=== PATIENT | female | born 1960 | race Caucasian/White ===

== ENCOUNTER → 2016-09-20 | Outpatient (CLI) | payer BC ==
[2016-09-20 08:23] LABS: Basophils % (A) 1 %; CH 29.1; CHCM 32.5; Eosinophils # (A) 0.2 k/uL (0-0.7); Eosinophils % (A) 4 %; HCT 44.4 % (34.0-46.0); HGB 14.5 gm/dL (11.4-16.0); Luc # (Auto) 0.11; Luc % (Auto) 3; Lymphocytes # (A) 1.6 k/uL (1.0-4.8); Lymphocytes % (A) 37 %; MCH 29.3 pg (25.0-35.0); MCHC 32.6 g/dL (31.0-37.0); MCV 89.8 fL (80.0-100.0); Mean Platelet Volume 7.8; Monocytes # (A) 0.3 k/uL (0-1.0); Monocytes % (A) 6 %; Neutrophils # (A) 2.1 k/uL (1.3-7.7); Neutrophils % (A) 49 %; RBC 4.95 m/uL (3.80-5.40); RDW 13.3 % (11.5-15.5); WBC 4.2 k/uL (3.8-10.6); WBC (Perox) 4.37
[2016-09-20 08:40] LABS: ALT 28 U/L (9-52); AST 21 U/L (14-36); Alkaline Phosphatase 57 U/L (38-126); Anion Gap 10 mmol/L; Blood Urea Nitrogen 19 mg/dL (7-17); Calcium 9.5 mg/dL (8.4-10.2); Carbon Dioxide 27 mmol/L (22-30); Chloride 108 mmol/L (98-107); Cholesterol 187 mg/dL (<200); Glucose 99 mg/dL (74-99); HDL Cholesterol 52 mg/dL (40-60); Non-African American GFR(MDRD) >60 (>60 ml/min/1.73 sqM); Potassium 4.6 mmol/L (3.5-5.1); Sodium 145 mmol/L (137-145); Total Bilirubin 0.6 mg/dL (0.2-1.3); Total Protein 7.7 g/dL (6.3-8.2); Triglycerides 110 mg/dL (<150)
== END | disposition home or self-care (01) ==
LOC: LABWHC1 08:05
PROVIDERS: ATTEND Family Medicine
DX: Z00.00 Encounter for general adult medical examination without abnormal findings (principal); Z13.220 Encounter for screening for lipoid disorders; Z13.1 Encounter for screening for diabetes mellitus
CPT/HCPCS: 36415; 80053; 80061; 85025

== ENCOUNTER → 2016-09-25 | Outpatient (CLI) | payer BC ==
--- NOTE | 2016-09-29 09:36 | MM ---
Reason for exam: screening (asymptomatic). Last mammogram was performed 1 year and 1 month ago. History: Patient is postmenopausal, has history of other cancer at age 43, and is nulliparous. Family history of breast cancer in paternal grandmother at age 60. Benign excisional biopsy of the right breast, February 08, 2001. Benign ultrasound-guided core biopsy of the right breast, January 23, 1999. Benign core biopsy of the right breast. Physical Findings: A clinical breast exam by your physician is recommended on an annual basis and results should be correlated with mammographic findings. MG Screening Mammo w CAD Bilateral CC and MLO view(s) were taken. Prior study comparison: September 05, 2015, bilateral MG 3d diag mammo w/cad ТАТЬЯНА. July 21, 2014, bilateral MG diagnostic mammo w CAD ТАТЬНЯА. There are scattered fibroglandular densities. Asymmetric breast tissue. Right stable since 2012. Ultrasound 2016 negative. No significant changes when compared with prior studies. ASSESSMENT: Benign, BI-RAD 2 RECOMMENDATION: Routine screening mammogram of both breasts in 1 year.
== END | disposition home or self-care (01) ==
LOC: RADMAMWWP 16:12
PROVIDERS: ATTEND Obstetrics & Gynecology
DX: Z12.31 Encounter for screening mammogram for malignant neoplasm of breast (principal)

== ENCOUNTER 2016-10-16 18:55 | Emergency (ER) | payer BC ==
[2016-10-16 19:01] VITALS: BP 129/76; PULSE 78; RESP 18; TEMP 98.4
[2016-10-16] MEDS ORDERED: DIPH,PERTUS(ACELL)TETVAC-LF 0.5 ML VIAL IM ONE (19:14)
--- NOTE | 2016-10-16 19:22 | ED ---
Wound/Laceration HPI - General Chief Complaint: Wound/Laceration Stated Complaint: Lac/Hand Time Seen by Provider: 10/16/16 19:03 Source: patient, RN notes reviewed Mode of arrival: ambulatory Limitations: no limitations - History of Present Illness Initial Comments: Patient is a 55-year-old female presents to the emergency room for evaluation of right hand laceration. Patient states she was cleaning dishes and a piece of glass cut her hand. Patient states she's having minimal pain. Patient states she's having minimal bleeding. Patient states she is not sure when her last tetanus vaccine was. Patient states she still has full range of motion of her fingers. Patient denies any numbness or tingling in her fingers. Patient denies any other injuries during incident. Patient denies taking blood thinners. - Related Data Allergies Allergy/AdvReac Type Severity Reaction Status Date / Time sulfamethoxazole Allergy Unknown Verified 10/16/16 19:01 [From ] Childhood trimethoprim [From ] Allergy Unknown Verified 10/16/16 19:01 Childhood Review of Systems ROS Statement: Those systems with pertinent positive or pertinent negative responses have been documented in the HPI. ROS Other: All systems not noted in ROS Statement are negative. Past Medical History Past Medical History: Atrial Fibrillation Additional Past Medical History / Comment(s): skull fracture History of Any Multi-Drug Resistant Organisms: None Reported Past Surgical History: Appendectomy, Heart Catheterization, Hysterectomy Additional Past Surgical History / Comment(s): skull fracture, cardiac ablation Past Psychological History: No Psychological Hx Reported Smoking Status: Never smoker Past Alcohol Use History: Occasional Past Drug Use History: None Reported General Exam - General Exam Comments Initial Comments: Sitting in exam room, no acute distress. Limitations: no limitations General appearance: alert, in no apparent distress Head exam: Present: atraumatic, normocephalic, normal inspection Eye exam: Present: normal appearance ENT exam: Present: normal exam Neck exam: Present: normal inspection Respiratory exam: Absent: respiratory distress Right Hand Wrist exam: Present: full ROM, laceration (1cm laceration over 5th dorsal MCP joint ). Absent: tenderness Neurosensory exam: Present: 2-point discrimination Vascular: Present: normal capillary refill (Capillary refill less than 2 seconds ), radial pulse (2+), ulnar pulse (2+) Back exam: Present: normal inspection Neurological exam: Present: alert, oriented X3, CN II-XII intact, normal gait Psychiatric exam: Present: normal affect, normal mood Skin exam: Present: warm, dry. Absent: rash Course Vital Signs 10/16/16 18:56 Temperature 98.4 F Pulse Rate 78 Respiratory 18 Rate Blood Pressure 129/76 O2 Sat by Pulse 97 Oximetry Procedures - Laceration Laceration #1 Consent Obtained: verbal consent Indication: laceration Site: hand (right) Size (cm): 1 Description: linear Depth: simple, single layer Anesthetic Used: lidocaine 1% Anesthesia Technique: local infiltration Amount (mls): 1 Pre-repair: wound explored Type of Sutures: nylon Size of Sutures: 6-0 Number of Sutures: 3 Technique: simple, interrupted Patient Tolerated Procedure: well, no complications Medical Decision Making - Medical Decision Making Patient is a 55-year-old female presents to the emergency room for evaluation of right hand laceration. Laceration repair with sutures. Patient updated on her tetanus vaccine. Advised patient to return in 10 days for suture removal. Patient states she understands everything that was discussed with her. Return parameters discussed. Case discussed Dr. Fontanez. Disposition Clinical Impression: Hand laceration Disposition: HOME SELF-CARE Condition: Good Instructions: Laceration (ED), Care For Your Stitches (ED) Additional Instructions: Do not submerge suture area in water. Clean suture area with a damp cloth. Take Tylenol or Motrin as needed for discomfort. Please return in 10 days for suture removal. If any new symptom arises or symptoms worsen, return to ER as soon as possible. Referrals: Roel Aguilar MD [Primary Care Provider] - 1-2 days Time of Disposition: 19:44
== END 2016-10-16 20:07 | disposition home or self-care (01) ==
LOC: EC 18:55
DX: S61.411A Laceration without foreign body of right hand, initial encounter (principal); Z88.1 Allergy status to other antibiotic agents; Z23 Encounter for immunization; W25.XXXA Contact with sharp glass, initial encounter; Y93.G1 Activity, food preparation and clean up
CPT/HCPCS: 12001; 90471; 90715; 99282

== ENCOUNTER → 2016-12-18 | Outpatient (CLI) | payer BC ==
[2016-12-18 14:42] LABS: Calcium 9.2 mg/dL (8.4-10.2)
== END | disposition home or self-care (01) ==
LOC: LABWHC1 14:07
PROVIDERS: ATTEND Internal Medicine Endocrinology, Diabetes & Metabolism
DX: E04.1 Nontoxic single thyroid nodule (principal); E21.0 Primary hyperparathyroidism; E55.9 Vitamin D deficiency, unspecified
CPT/HCPCS: 36415; 82306; 82310; 83970; 84439; 84443

== ENCOUNTER → 2016-12-30 | Outpatient (CLI) | payer BC ==
--- NOTE | 2016-12-30 17:36 | US ---
EXAMINATION TYPE: US thyroid st tissue head/neck DATE OF EXAM: 12/30/2016 COMPARISON: 01/10/2015 CLINICAL HISTORY: E04.1 Nontoxic single tyroid nodule. Had right parathyroid nodule removed GLAND SIZE: Right Lobe: 4.8 x 1.6 x 1.8 cm Overall Parenchyma: homogenous Left Lobe: 4.2 x 1.2 x 1.2 cm Overall Parenchyma: homogeneous Isthmus Thickness: 0.3 cm NODULES RIGHT: # of nodules measured on right: 2 1. 0.6 X 0.5 x 0.5 cm hypoechoic mixed nodule at the mid medial pole with well-defined margins. Th is nodule is wide as is tall and shows no intranodular vascularity. Prior size: 0.7 x 0.6 x 0.6 cm 2. 0.3 X 0.4 x 0.3 cm hypoechoic cystic nodule at the mid lateral pole with well-defined margins. T his nodule is wider than tall and shows no intranodular vascularity. Prior size: 0.4 x 0.2 x 0.4 cm LEFT: # of nodules measured on left: 1 1. 0.3 X 0.2 x 0.2 cm hypoechoic cystic nodule at the mid pole with well-defined margins; interrupt ed peripheral calcification. This nodule is wide as is tall and shows no intranodular vascularity. Prior size: 0.3 x 0.2 x 0.3 cm ISTHMUS: # of nodules measured in the isthmus: 0 Bilateral neck scanned, no evidence of lymphadenopathy. IMPRESSION: Bilateral small findings. No dominant thyroid mass. No adverse change compared to old exam. I have a very low suspicion of malignancy.
== END | disposition home or self-care (01) ==
LOC: RADUSWWP 16:48
PROVIDERS: ATTEND Internal Medicine Endocrinology, Diabetes & Metabolism
DX: E04.2 Nontoxic multinodular goiter (principal)
CPT/HCPCS: 76536

== ENCOUNTER → 2017-09-11 | Outpatient (CLI) | payer BC ==
[2017-09-11 08:35] LABS: Basophils % (A) 1 %; Eosinophils # (A) 0.3 k/uL (0-0.7); Eosinophils % (A) 5 %; HCT 45.7 % (34.0-46.0); HGB 15.5 gm/dL (11.4-16.0); Lymphocytes # (A) 1.8 k/uL (1.0-4.8); Lymphocytes % (A) 35 %; MCH 29.6 pg (25.0-35.0); MCHC 33.9 g/dL (31.0-37.0); MCV 87.3 fL (80.0-100.0); Mean Platelet Volume 7.8; Monocytes # (A) 0.4 k/uL (0-1.0); Monocytes % (A) 7 %; Neutrophils # (A) 2.6 k/uL (1.3-7.7); Neutrophils % (A) 50 %; Platelet Count 251 k/uL (150-450); RBC 5.23 m/uL (3.80-5.40); RDW 12.4 % (11.5-15.5); WBC 5.2 k/uL (3.8-10.6)
[2017-09-11 08:54] LABS: ALT 26 U/L (9-52); AST 21 U/L (14-36); Albumin 4.1 g/dL (3.5-5.0); Alkaline Phosphatase 49 U/L (38-126); Anion Gap 10 mmol/L; Blood Urea Nitrogen 14 mg/dL (7-17); Carbon Dioxide 28 mmol/L (22-30); Chloride 103 mmol/L (98-107); Cholesterol 174 mg/dL (<200); Glucose 93 mg/dL (74-99); HDL Cholesterol 36 mg/dL (40-60); LDL Cholesterol,Calculated 106 mg/dL (0-99); Potassium 4.7 mmol/L (3.5-5.1); Sodium 141 mmol/L (137-145); Total Bilirubin 0.5 mg/dL (0.2-1.3); Total Protein 6.9 g/dL (6.3-8.2); Triglycerides 162 mg/dL (<150)
== END | disposition home or self-care (01) ==
LOC: LABWHC1 08:08
PROVIDERS: ATTEND Family Medicine
DX: Z00.00 Encounter for general adult medical examination without abnormal findings (principal); Z13.1 Encounter for screening for diabetes mellitus; Z13.220 Encounter for screening for lipoid disorders; Z79.899 Other long term (current) drug therapy
CPT/HCPCS: 36415; 80053; 80061; 85025

== ENCOUNTER → 2017-10-13 | Outpatient (CLI) | payer BC ==
--- NOTE | 2017-10-14 10:24 | MM ---
Reason for exam: screening (asymptomatic). Last mammogram was performed 1 year and 1 month ago. History: Patient is postmenopausal, has history of other cancer at age 43, and is nulliparous. Family history of breast cancer in paternal grandmother at age 60. Benign excisional biopsy of the right breast, February 08, 2001. Benign ultrasound-guided core biopsy of the right breast, January 23, 1999. Benign core biopsy of the right breast. Physical Findings: A clinical breast exam by your physician is recommended on an annual basis and results should be correlated with mammographic findings. MG Screening Mammo w CAD Bilateral CC and MLO view(s) were taken. Prior study comparison: September 25, 2016, bilateral MG screening mammo w CAD. September 05, 2015, bilateral MG 3d diag mammo w/cad ТАТЬЯНА. The breast tissue is heterogeneously dense. This may lower the sensitivity of mammography. There is chronic nodularity in the right breast. No significant changes when compared with prior studies. ASSESSMENT: Benign, BI-RAD 2 RECOMMENDATION: Routine screening mammogram of both breasts in 1 year.
== END | disposition home or self-care (01) ==
LOC: RADMAMWWP 16:38
PROVIDERS: ATTEND Obstetrics & Gynecology
DX: Z12.31 Encounter for screening mammogram for malignant neoplasm of breast (principal); Z80.3 Family history of malignant neoplasm of breast
CPT/HCPCS: 77067

== ENCOUNTER → 2017-12-22 | Outpatient (CLI) | payer BC ==
--- NOTE | 2017-12-22 11:19 | US ---
EXAMINATION TYPE: US thyroid st tissue head/neck DATE OF EXAM: 12/22/2017 COMPARISON: Thyroid ultrasound May 02, 2017 CLINICAL HISTORY: E04.1 Thyroid Nodule. GLAND SIZE: Right Lobe: 4.7 x 1.6 x 1.5 cm Overall Parenchyma: homogenous Left Lobe: 4.6 x 1.2 x 1.3 cm Overall Parenchyma: homogeneous Isthmus Thickness: 0.2 cm NODULES RIGHT: # of nodules measured on right: 1. 0.6 X 0.5 x 0.6 cm hypoechoic solid nodule at the mid pole with well-defined margins . This nod ule is wider than tall and shows intranodular vascularity. Prior size: 0.7 x 0.6 x 0.6 cm 2. 0.2 X 0.2 x 0.2 cm anechoic cystic nodule at the mid lateral pole with well-defined margins . Th is nodule is wider than tall and shows no intranodular vascularity. Prior size: 0.3 x 0.4 x 0.3 cm LEFT: # of nodules measured on left: 1 1. 0.4 X 0.2 x 0.2 cm anechoic cystic nodule at the mid pole with well-defined margins. This nodul e is wider than tall and shows no intranodular vascularity. Prior size: 0.3 x 0.2 x 0.3 cm ISTHMUS: # of nodules measured in the isthmus: 0 Bilateral neck scanned, no evidence of lymphadenopathy. Redemonstration of heterogeneous normal-sized thyroid with scattered small nodules that shows no sign ificant interval change. IMPRESSION: As above, no worrisome new greater than 1 cm solid or cystic nodules are seen.
[2017-12-22 11:36] LABS: Albumin 4.3 g/dL (3.5-5.0); Calcium 9.4 mg/dL (8.4-10.2)
[2017-12-22 11:55] LABS: T4, Free (Free Thyroxine) 0.81 ng/dL (0.78-2.19)
== END | disposition home or self-care (01) ==
LOC: RADUSWWP 10:30
PROVIDERS: ATTEND Internal Medicine Endocrinology, Diabetes & Metabolism
DX: E04.2 Nontoxic multinodular goiter (principal); E04.1 Nontoxic single thyroid nodule; E21.0 Primary hyperparathyroidism; E55.9 Vitamin D deficiency, unspecified
CPT/HCPCS: 36415; 76536; 82040; 82306; 82310; 84439; 84443

== ENCOUNTER → 2018-09-30 | Outpatient (CLI) | payer BC ==
--- NOTE | 2018-09-30 14:58 | MM ---
Reason for exam: clinical finding. Last mammogram was performed 1 year ago. History: Patient is postmenopausal, has history of other cancer at age 43, and is nulliparous. Family history of breast cancer in paternal grandmother at age 60. Benign excisional biopsy of the right breast, February 08, 2001. Benign ultrasound-guided core biopsy of the right breast, January 23, 1999. Benign core biopsy of the right breast. Indicated problem(s): lump or thickening in the left breast. Physical Findings: Nurse Summary: 1cm nodule in the left breast at 2 o'clock (nurse mj). MG Diagnostic Mammo w CAD ТАТЬЯНА Bilateral CC and MLO view(s) were taken. Prior study comparison: October 13, 2017, bilateral MG screening mammo w CAD. September 25, 2016, bilateral MG screening mammo w CAD. The breast tissue is heterogeneously dense. This may lower the sensitivity of mammography. Finding: There are typically benign round, regional calcifications in the upper outer quadrant of the left breast. These results were verbally communicated with the patient and result sheet given to the patient on 09/30/18. ASSESSMENT: Incomplete: need additional imaging evaluation, BI-RAD 0 RECOMMENDATION: Ultrasound of the left breast. (palpable by patient/doctor)
--- NOTE | 2018-09-30 14:59 | USB ---
Reason for exam: additional evaluation requested from abnormal screening. History: Patient is postmenopausal, has history of other cancer at age 43, and is nulliparous. Family history of breast cancer in paternal grandmother at age 60. Benign excisional biopsy of the right breast, February 08, 2001. Benign ultrasound-guided core biopsy of the right breast, January 23, 1999. Benign core biopsy of the right breast. US Breast Limited LT Left limited breast ultrasound including focal area of concern, retroareolar and axilla demonstrates a 0.4 x 0.2 x 0.4cm lesion too small to characterize at 6 o'clock and a 0.4 x 0.4 x 0.7cm round questionable lipoma at 2 o'clock. These results were verbally communicated with the patient and result sheet given to the patient on 09/30/18. ASSESSMENT: Probably benign, BI-RAD 3 RECOMMENDATION: Ultrasound of the left breast in 6 months.
== END | disposition home or self-care (01) ==
LOC: RADMAMWWP 13:35
PROVIDERS: ATTEND Obstetrics & Gynecology
DX: N63.20 Unspecified lump in the left breast, unspecified quadrant (principal)
CPT/HCPCS: 77066

== ENCOUNTER → 2018-10-01 | Outpatient (CLI) | payer BC ==
[2018-10-01 10:23] LABS: Basophils % (A) 1 %; Eosinophils # (A) 0.2 k/uL (0-0.7); Eosinophils % (A) 4 %; HCT 47.8 % (34.0-46.0); HGB 15.5 gm/dL (11.4-16.0); Lymphocytes # (A) 1.5 k/uL (1.0-4.8); Lymphocytes % (A) 33 %; MCH 28.6 pg (25.0-35.0); MCHC 32.3 g/dL (31.0-37.0); MCV 88.7 fL (80.0-100.0); Mean Platelet Volume 7.9; Monocytes # (A) 0.3 k/uL (0-1.0); Monocytes % (A) 6 %; Neutrophils # (A) 2.4 k/uL (1.3-7.7); Neutrophils % (A) 54 %; Platelet Count 294 k/uL (150-450); RBC 5.39 m/uL (3.80-5.40); RDW 13.4 % (11.5-15.5); WBC 4.6 k/uL (3.8-10.6)
[2018-10-01 17:04] LABS: Albumin 4.5 g/dL (3.80-4.90); Albumin/Globulin Ratio 2.05 (1.60-3.17); Anion Gap 7.3 mmol/L (4.00-12.00); Calcium 9.2 mg/dL (8.7-10.3); Carbon Dioxide 27.7 mmol/L (21.6-31.8); Globulin 2.2 g/dL (1.6-3.3); Total Bilirubin 0.6 mg/dL (0.2-1.2); Total Protein 6.7 g/dL (6.2-8.2)
[2018-10-01 17:05] LABS: LDL Cholesterol,Calculated 141.6 mg/dL (0.0-131.0); VLDL Calculation 39.4 mg/dL (5.00-40.00)
== END ==
LOC: LABWHC1 08:52
PROVIDERS: ATTEND Family Medicine
DX: Z00.00 Encounter for general adult medical examination without abnormal findings (principal); Z13.220 Encounter for screening for lipoid disorders; Z13.1 Encounter for screening for diabetes mellitus
CPT/HCPCS: 36415; 80053; 80061; 85025

== ENCOUNTER → 2018-11-22 | Outpatient (CLI) | payer BC | END | disposition home or self-care (01) | LOC: LABWHC1 16:40 | PROVIDERS: ATTEND Obstetrics & Gynecology | DX: E34.50 Androgen insensitivity syndrome, unspecified (principal); R53.83 Other fatigue | CPT/HCPCS: 36415; 82670; 83001; 84403 ==

== ENCOUNTER → 2019-06-22 | Outpatient (CLI) | payer BC ==
[2019-06-22 10:43] LABS: Basophils % (A) 1 %; Eosinophils # (A) 0.1 k/uL (0-0.7); Eosinophils % (A) 3 %; HCT 45.5 % (34.0-46.0); HGB 14.9 gm/dL (11.4-16.0); Lymphocytes # (A) 1.6 k/uL (1.0-4.8); Lymphocytes % (A) 32 %; MCH 29.3 pg (25.0-35.0); MCHC 32.7 g/dL (31.0-37.0); MCV 89.7 fL (80.0-100.0); Mean Platelet Volume 8.1; Monocytes # (A) 0.3 k/uL (0-1.0); Monocytes % (A) 6 %; Neutrophils % (A) 57 %; Platelet Count 272 k/uL (150-450); RBC 5.07 m/uL (3.80-5.40); RDW 12.4 % (11.5-15.5); WBC 5.2 k/uL (3.8-10.6)
--- NOTE | 2019-06-22 10:50 | XR ---
EXAMINATION TYPE: XR chest 2V DATE OF EXAM: 06/22/2019 COMPARISON: NONE TECHNIQUE: PA and lateral views submitted. HISTORY: Swollen eye FINDINGS: The lungs are clear and there is no pneumothorax, pleural effusion, or focal pneumonia. Arthropathy of the shoulders. Hypertrophic change of the spine. No overt failure. Tiny granuloma suspected in th e upper lobes bilaterally. IMPRESSION: 1. No acute process. Tiny bilateral upper lobe nodules most likely in the basis of granuloma. Given t here is no prior exam recommend 3 month follow-up to confirm stability.
[2019-06-22 12:00] LABS: Erythrocyte Sedimentation Rate 9 mm/hr (0-20)
[2019-06-23 09:24] LABS: Angiotensin-1 Converting Enz. 76 U/L (8-52)
== END | disposition home or self-care (01) ==
LOC: LABWHC1 09:32
PROVIDERS: ATTEND Ophthalmology
DX: R91.8 Other nonspecific abnormal finding of lung field (principal); H20.9 Unspecified iridocyclitis
CPT/HCPCS: 36415; 71046; 82164; 85025; 85549; 85652; 86618; 86780

== ENCOUNTER → 2019-06-22 | Outpatient (CLI) | payer BC ==
[~2019-06-22] MED LIST: TUBERCULIN PPD (SKIN TEST) 5 UNIT/0.1 ML (MDV) VIAL INTRADERMA NR
[2019-06-22 13:18] VITALS: BP 140/87; PULSE 91; RESP 16; TEMP 97.9
== END | disposition home or self-care (01) ==
LOC: PROCWHC3 12:47
PROVIDERS: ATTEND Ophthalmology
DX: H30.92 Unspecified chorioretinal inflammation, left eye (principal)
CPT/HCPCS: 86580

== ENCOUNTER → 2019-08-01 | Outpatient (CLI) | payer BC ==
--- NOTE | 2019-08-02 09:40 | CT ---
EXAMINATION TYPE: CT chest w con DATE OF EXAM: 08/01/2019 COMPARISON: Chest x-ray 06/22/2019 HISTORY: sarcoidosis CT DLP: 288 mGycm Automated exposure control for dose reduction was used. CONTRAST: CT scan of the chest is performed with IV Contrast, patient injected with 100 mL of Isovue 300. FINDINGS: LUNGS: There are calcified smoothly marginated lung nodules in the bilateral upper lobes correspondin g to the abnormality seen on chest x-ray. Multiple noncalcified nodular densities are also present on axial image 30 in the left upper lobe, left lower lobe, the largest measuring approximately 1 cm. No ncalcified nodules also present in the right lower lobe on axial image 31, right upper lobe on axial image 30. Calcified lower lobe nodules are also present. There is no pleural effusion or pneumothorax seen. The tracheobronchial tree is patent. MEDIASTINUM: There are no greater than 1 cm hilar or mediastinal lymph nodes. No pericardial effusi on is seen. Calcified subcarinal, hilar and mediastinal nodes are present. Prevascular, aorticopulmo nary window nodes are present, retrocaval pretracheal shotty nodes. AORTA: No additional significant abnormality is seen. OTHER: Somewhat nodular appearance to the left adrenal gland is noted on axial image 61. Probable duo denal diverticulum present at the head of the pancreas. IMPRESSION: Findings consistent with patient's history of granulomatous disease, sarcoid. Additional findings above.
== END | disposition home or self-care (01) ==
LOC: RADCTMAIN 17:29
PROVIDERS: ATTEND Internal Medicine Rheumatology
DX: D86.9 Sarcoidosis, unspecified (principal); R91.1 Solitary pulmonary nodule; J98.4 Other disorders of lung
CPT/HCPCS: 71260; Q9967

== ENCOUNTER → 2019-11-21 | Outpatient (CLI) | payer BC ==
--- NOTE | 2019-11-22 08:45 | MM ---
Reason for exam: additional evaluation requested from prior study. Last mammogram was performed 1 year and 2 months ago. History: Patient is postmenopausal, has history of other cancer at age 43, and is nulliparous. Family history of breast cancer in paternal grandmother at age 60. Benign excisional biopsy of the right breast, February 08, 2001. Benign ultrasound-guided core biopsy of the right breast, January 23, 1999. Benign core biopsy of the right breast. Physical Findings: Nurse Summary: 0.5 x 1.0cm nodule in the left breast at 2 o'clock (nurse ts). MG Diagnostic Mammo w CAD ТАТЬЯНА Bilateral CC and MLO view(s) were taken. Prior study comparison: September 30, 2018, bilateral MG diagnostic mammo w CAD ТАТЬЯНА. October 13, 2017, bilateral MG screening mammo w CAD. The breast tissue is heterogeneously dense. This may lower the sensitivity of mammography. There are similar appearing left upper outer quadrant calcifications compared to 2018. No suspicious abnormality. Right upper outer quadrant 1.1cm mass and post surgical change at posterior depth unchanged from 2017. These results were verbally communicated with the patient and result sheet given to the patient on 11/21/19. ASSESSMENT: Benign, BI-RAD 2 RECOMMENDATION: Routine screening mammogram of both breasts in 1 year.
== END | disposition home or self-care (01) ==
LOC: RADMAMWWP 13:24
PROVIDERS: ATTEND Obstetrics & Gynecology
DX: R92.8 Other abnormal and inconclusive findings on diagnostic imaging of breast (principal); Z80.3 Family history of malignant neoplasm of breast
CPT/HCPCS: 77066

== ENCOUNTER → 2019-12-14 | Outpatient (CLI) | payer BC ==
--- NOTE | 2019-12-14 13:32 | US ---
EXAMINATION TYPE: US thyroid st tissue head/neck DATE OF EXAM: 12/14/2019 COMPARISON: US 12/22/2017 CLINICAL HISTORY: E04.1 Thyroid nodule. GLAND SIZE: Right Lobe: 5.1 x 1.6 x 1.3 cm Overall Parenchyma: homogenous Left Lobe: 4.4 x 1.2 x 1.2 cm Overall Parenchyma: homogeneous Isthmus Thickness: 0.3 cm NODULES RIGHT: # of nodules measured on right: 1 1. 0.7 X 0.5 x 0.6 cm hypoechoic solid nodule at the mid pole with well-defined margins; . This no dule is wider than tall and shows intranodular vascularity. Prior size: 0.6 x 0.5 x 0.6 cm LEFT: # of nodules measured on left: 1 1. 0.4 X 0.3 x 0.3 cm hypoechoic cystic nodule at the mid pole with well-defined margins; . This n odule is wider than tall and shows no intranodular vascularity. Prior size: 0.4 x 0.2 x 0.2 cm ISTHMUS: # of nodules measured in the isthmus: 0 Bilateral neck scanned, no evidence of lymphadenopathy. Stable thyroid nodules IMPRESSION: Stable nonspecific thyroid nodularity.
== END | disposition home or self-care (01) ==
LOC: RADUSWWP 12:50
PROVIDERS: ATTEND Internal Medicine Endocrinology, Diabetes & Metabolism
DX: E04.2 Nontoxic multinodular goiter (principal)
CPT/HCPCS: 76536

== ENCOUNTER 2020-02-21 05:43 | Day surgery (SDC) | payer BC ==
[~2020-02-21 05:43] MED LIST changes: +ALBUTEROL NEB (CONC) 2.5 MG/0.5 ML INHALATION ONE; +ATROPINE SULFATE 0.4 MG/ML 1 ML VIAL IM ONE; +LIDOCAINE 2% (PF) 20 MG/ML 5 ML VIAL INHALATION ONE; -TUBERCULIN PPD (SKIN TEST) 5 UNIT/0.1 ML (MDV) VIAL INTRADERMA NR
[2020-02-21] MEDS ORDERED: LIDOCAINE VISCOUS 300 MG/15 ML CUP MUCOUS MEM ONE (06:00)
[2020-02-21] MEDS ORDERED: SODIUM CHLORIDE 0.9% 1,000 ML IV SCH (06:00)
[2020-02-21] MEDS ORDERED: DEXAMETHASONE SOD PHOSPHATE 10 MG/ML 1 ML VIAL IV ONE (06:13)
[2020-02-21] MEDS ORDERED: ONDANSETRON 4 MG/2 ML VIAL IVP ONE (06:13)
[2020-02-21] MEDS ORDERED: LACTATED RINGERS 1,000 ML IV SCH (06:13)
[2020-02-21] MEDS ORDERED: LIDOCAINE 1% (10MG/ML) FOR IV START INTRADERMA PRN (06:13)
[2020-02-21 06:44] VITALS: TEMP 97.7
[2020-02-21 06:50] LABS: Glucose,Whole Blood 96 mg/dL (75-99)
[2020-02-21] MEDS ORDERED: PROPOFOL 10 MG/ML 20 ML VIAL IV ONE (07:08)
[2020-02-21] MEDS ORDERED: MIDAZOLAM 2 MG/2 ML VIAL ONE (07:08)
[2020-02-21] MEDS ORDERED: fentaNYL (PF) 50 MCG/ML 2 ML AMP ONE (07:08)
[2020-02-21 07:46] VITALS: RESP 16
[2020-02-21 07:54] VITALS: BP 113/64; PULSE 83
--- NOTE | 2020-02-21 07:58 | XR ---
EXAMINATION TYPE: XR chest 1V DATE OF EXAM: 02/21/2020 COMPARISON: Chest CT August 01, 2019. 2 view chest x-ray June 22, 2019. HISTORY: Post bronchoscopy. TECHNIQUE: Single AP portable frontal upright view of the chest is obtained. FINDINGS: There is no focal air space opacity, pleural effusion, or pneumothorax seen after bronchos copy. Scattered bilateral pulmonary nodules redemonstrated. The cardiac silhouette size remains with in normal limits. The osseous structures are intact. IMPRESSION: No pneumothorax after bronchoscopy.
--- NOTE | 2020-02-21 10:34 | PCN ---
PROCEDURE NOTE PROCEDURE: Bronchoscopy, airway examination, therapeutic lavage, BAL, and multiple transbronchial biopsies left lower lobe. PREOPERATIVE DIAGNOSIS: Rule out pulmonary sarcoidosis. POSTOPERATIVE DIAGNOSIS: Rule out pulmonary sarcoidosis. OPERATORS: Dr. Francis and Pete Espinal. There was informed consent and universal timeout. The patient's procedure took place in room #1. ANESTHESIA PROVIDED: General anesthesia. After the patient was adequately sedated and being fully monitored, the bronchoscope was inserted through the right nostril. It passed through the right nasopharynx into the oropharynx. The hypopharynx was identified. The hypopharyngeal structures, including the anterior commissure, true cords, false cords, arytenoids, piriform sinuses, right and left valleculae and epiglottis all appeared normal. After topicalization, the bronchoscope was pushed through the glottic opening into the trachea. Trachea appeared normal. The tracheal franki was sharp. The right mainstem and left mainstem were topicalized. The right upper lobe and its 3 segments, right middle lobe and its 2 segments, right lower lobe and its 5 segments left upper lobe and its 2 segments, lingula and its 2 segments and left lower lobe and its 4 segments all had similar findings of diffuse airway edema and erythema. There was some mucus noted throughout. It was suctioned without difficulty. I can't really say there was a classic cobblestone appearance to the bronchial mucosa that one typically sees with sarcoidosis, but the mucosa itself was definitely abnormal. There was some vascular engorgement. Next, multiple transbronchial biopsies were done in the left lower lobe. We did at least 8 or 9 biopsies in that area. The patient tolerated the procedure well. In addition, there was a BAL performed in the left lower lobe. There was no significant bleeding and the bronchoscope was then withdrawn. There was no immediate complication. A chest x-ray will be done. We did look under fluoro to make sure there was no obvious pneumothorax and there was not. The patient tolerated the procedure well without complication. I did talk to the patient's sisterAna Maria to let her know the procedure. Again, everything went extremely well. Hopefully, all the specimen will show the diagnosis that are seeking. MMODL / IJN: [id number] /
--- NOTE | 2020-02-21 14:10 | FL ---
EXAMINATION TYPE: FL bronchoscopy DATE OF EXAM: 02/21/2020 CLINICAL HISTORY: Difficulty breathing. TECHNIQUE: Fluoroscopy. COMPARISON: None. FINDINGS: Fluoroscopic guidance was provided during bronchoscopy procedure performed by Dr. Francis. A total of 20 seconds of fluoroscopic time was utilized during the procedure and single spot intraope rative image is acquired. Single image shows advancement of bronchoscope into left lower lung bronchu s for sampling. IMPRESSION: As Above.
[2020-02-21 17:00] LABS: Appearance,BF Bloody; Color,BF Red; Nucleated Cells, Body Fluid 3000 /uL; RBC, Body Fluid 168500 /uL
[2020-02-21 17:06] LABS: Mononuclear WBC,Body Fluid 85 %; Polynuclear WBC,Body Fluid 15 %; Total Cells Counted,Body Fluid 100
== END 2020-02-21 08:30 | disposition home or self-care (01) ==
LOC: ORWHC2ENDO 05:43
PROVIDERS: ATTEND Internal Medicine Critical Care Medicine
DX: D86.9 Sarcoidosis, unspecified (principal); R00.0 Tachycardia, unspecified; E21.3 Hyperparathyroidism, unspecified; Z87.820 Personal history of traumatic brain injury; Z83.3 Family history of diabetes mellitus; Z90.710 Acquired absence of both cervix and uterus; Z98.890 Other specified postprocedural states; Z79.899 Other long term (current) drug therapy; Z88.2 Allergy status to sulfonamides
CPT/HCPCS: 88108; 88305; 89050; 87252; 87070; 87205; 87116; 87102; 87206; 71045; 31628; 31624; J2250; J0461; J3010; J2704; 87496; 87498; 87502; 87529; 87634; 87798

== ENCOUNTER → 2020-10-09 | Outpatient (CLI) | payer BC ==
[2020-10-09 17:03] LABS: Basophils # (A) 0.06 X 10*3/uL (0.00-0.10); Basophils % (A) 1.3 %; Eosinophils # (A) 0.26 X 10*3/uL (0.04-0.35); Eosinophils % (A) 5.6 %; HCT 46.2 % (37.2-46.3); HGB 14.5 g/dL (12.0-15.0); Lymphocytes # (A) 2.12 X 10*3/uL (0.90-5.00); Lymphocytes % (A) 45.9 %; MCH 28.8 pg (27.0-32.0); MCHC 31.4 g/dL (32.0-37.0); MCV 91.7 fL (80.0-97.0); Mean Platelet Volume 11.9 fL (9.5-12.2); Monocytes # (A) 0.38 X 10*3/uL (0.20-1.00); Monocytes % (A) 8.2 %; Neutrophils # (A) 1.79 X 10*3/uL (1.80-7.70); Neutrophils % (A) 38.8 %; Platelet Count 271 X 10*3/uL (140-440); RBC 5.04 X 10*6/uL (4.10-5.20); RDW 12.5 % (11.5-14.5); WBC 4.62 X 10*3/uL (4.50-10.00)
[2020-10-09 19:08] LABS: African American GFR (CKD) 92.9 (60.0-200.0); Albumin 4.2 g/dL (3.80-4.90); Albumin/Globulin Ratio 1.83 (1.60-3.17); Anion Gap 7.7 mmol/L (4.00-12.00); BUN/Creat Ratio 16.25 Ratio (12.00-20.00); Calcium 9.5 mg/dL (8.7-10.3); Carbon Dioxide 27.3 mmol/L (21.6-31.8); Chol/HDL Ratio 4.45; Globulin 2.3 g/dL (1.6-3.3); LDL Cholesterol,Calculated 143.2 mg/dL (0.0-131.0); Non-African American GFR(CKD) 80.1 (60.0-200.0); Potassium 4.8 mmol/L (3.5-5.5); Total Bilirubin 0.6 mg/dL (0.2-1.2); Total Protein 6.5 g/dL (6.2-8.2); VLDL Calculation 25.8 mg/dL (5.00-40.00)
== END | disposition home or self-care (01) ==
LOC: LABWHC1 06:55
PROVIDERS: ATTEND Family Medicine
DX: Z00.00 Encounter for general adult medical examination without abnormal findings (principal); Z13.220 Encounter for screening for lipoid disorders; Z13.0 Encounter for screening for diseases of the blood and blood-forming organs and certain disorders involving the immune mechanism; Z13.1 Encounter for screening for diabetes mellitus
CPT/HCPCS: 36415; 80053; 80061; 85025

== ENCOUNTER → 2021-01-04 | Outpatient (CLI) | payer BC ==
--- NOTE | 2021-01-10 11:18 | MM ---
Reason for exam: screening (asymptomatic). Last mammogram was performed 1 year and 1 month ago. History: Patient is postmenopausal, has history of other cancer at age 43, and is nulliparous. Family history of breast cancer in paternal grandmother at age 60. Benign excisional biopsy of the right breast, February 08, 2001. Benign ultrasound-guided core biopsy of the right breast, January 23, 1999. Benign core biopsy of the right breast. Taking other hormone for 1 year 6 months. Physical Findings: A clinical breast exam by your physician is recommended on an annual basis and results should be correlated with mammographic findings. MG Screening Mammo w CAD Bilateral CC and MLO view(s) were taken. Prior study comparison: November 21, 2019, bilateral MG diagnostic mammo w CAD ТАТЬЯНА. September 30, 2018, bilateral MG diagnostic mammo w CAD ТАТЬЯНА. September 05, 2015, bilateral MG 3d diag mammo w/cad ТАТЬЯНА. The breast tissue is heterogeneously dense. This may lower the sensitivity of mammography. Stable right 11 o'clock focal asymmetry. Asymmetric density anterior right CC view is more defined. Asymmetric density posterior lateral left CC view is more defined. ASSESSMENT: Incomplete: need additional imaging evaluation, BI-RAD 0 RECOMMENDATION: Special view mammogram of both breasts. (3D) If lesion persists on supplemental views, image directed ultrasound is recommended. [facility] will attempt to contact patient to return for supplemental views and ultrasound if indicated.
== END | disposition home or self-care (01) ==
LOC: RADMAMWWP 16:36
PROVIDERS: ATTEND Obstetrics & Gynecology
DX: Z12.31 Encounter for screening mammogram for malignant neoplasm of breast (principal); Z78.0 Asymptomatic menopausal state; Z80.3 Family history of malignant neoplasm of breast
CPT/HCPCS: 77067

== ENCOUNTER → 2021-01-11 | Outpatient (CLI) | payer BC ==
[2021-01-11 13:23] LABS: Basophils # (A) 0.04 X 10*3/uL (0.00-0.10); Basophils % (A) 0.7 %; Eosinophils # (A) 0.24 X 10*3/uL (0.04-0.35); Eosinophils % (A) 4.4 %; HCT 45.3 % (37.2-46.3); HGB 14.5 g/dL (12.0-15.0); Lymphocytes # (A) 1.95 X 10*3/uL (0.90-5.00); Lymphocytes % (A) 35.7 %; MCH 29.4 pg (27.0-32.0); MCV 91.7 fL (80.0-97.0); Mean Platelet Volume 11.6 fL (9.5-12.2); Monocytes # (A) 0.39 X 10*3/uL (0.20-1.00); Monocytes % (A) 7.1 %; Neutrophils # (A) 2.83 X 10*3/uL (1.80-7.70); Neutrophils % (A) 51.9 %; Platelet Count 290 X 10*3/uL (140-440); RBC 4.94 X 10*6/uL (4.10-5.20); RDW 12.5 % (11.5-14.5); Reticulocyte % 0.92 % (0.10-1.80); WBC 5.46 X 10*3/uL (4.50-10.00)
[2021-01-11 16:31] LABS: Hemoglobin A1C 5.4 % (4.0-6.0)
[2021-01-11 17:58] LABS: Follicle Stimulating Hormone 63.2 mIU/mL; Luteinizing Hormone 22.9 mIU/mL
[2021-01-11 18:40] LABS: % Iron Saturation 19.89 (12.00-45.00); ALT 18 U/L (8-44); AST 21 U/L (13-35); African American GFR (CKD) 92.2 (60.0-200.0); Albumin/Globulin Ratio 1.61 (1.60-3.17); Alkaline Phosphatase 73 U/L (41-126); C Reactive Protein 0.6 mg/dL (0.0-0.8); Calcium 9.5 mg/dL (8.7-10.3); Carbon Dioxide 27.1 mmol/L (21.6-31.8); Chloride 105 mmol/L (96-109); Creatine Kinase 131 U/L (26-186); Globulin 2.8 g/dL (1.6-3.3); Glucose 145 mg/dL (70-110); Iron 75 ug/dL (50-170); Magnesium 2.1 mg/dL (1.5-2.4); Non-African American GFR(CKD) 79.6 (60.0-200.0); Potassium 4.4 mmol/L (3.5-5.5); Sodium 142 mmol/L (135-145); Total Bilirubin 0.6 mg/dL (0.3-1.2); Total Iron Binding Capacity 377 ug/dL (228-460); Total Protein 7.3 g/dL (6.2-8.2)
[2021-01-11 18:54] LABS: Ferritin 116.4 ng/mL (10.0-291.0)
[2021-01-11 19:33] LABS: Folate, Serum >24.0 ng/mL
== END | disposition home or self-care (01) ==
LOC: LABWHC1 07:18
PROVIDERS: ATTEND Psychiatry & Neurology Pain Medicine
DX: G89.4 Chronic pain syndrome (principal); R53.81 Other malaise; R53.82 Chronic fatigue, unspecified; R53.83 Other fatigue; Z79.899 Other long term (current) drug therapy
CPT/HCPCS: 36415; 80053; 82306; 82533; 82550; 82607; 82626; 82668; 82728; 82746; 83001; 83002; 83003; 83036; 83519; 83540; 83550; 83735; 84207; 84305; 84425; 84439; 84443; 84446; 84466; 84481; 84590; 84591; 84597; 85025; 85045; 86140

== ENCOUNTER → 2021-01-18 | Outpatient (CLI) | payer BC ==
--- NOTE | 2021-01-22 14:16 | MM ---
Reason for exam: additional evaluation requested from abnormal screening. Last mammogram was performed less than 1 month ago. History: Patient is postmenopausal, has history of other cancer at age 43, and is nulliparous. Family history of breast cancer in paternal grandmother at age 60. Benign excisional biopsy of the right breast, February 08, 2001. Benign ultrasound-guided core biopsy of the right breast, January 23, 1999. Benign core biopsy of the right breast. Took other hormone for 1 year 6 months beginning at age 56. Physical Findings: Nurse did not find any significant physical abnormalities on exam. MG Work Up Mamm w CAD BILAT Bilateral spot compression CC view(s) were taken. CCRL view(s) were taken of the right breast. CCRM view(s) were taken of the left breast. Prior study comparison: January 04, 2021, bilateral MG screening mammo w CAD. November 21, 2019, bilateral MG diagnostic mammo w CAD ТАТЬЯНА. The breast tissue is heterogeneously dense. This may lower the sensitivity of mammography. There is no discrete abnormality including area of concern right anterior, left posterior breast. No significant new findings when compared with previous films. These results were verbally communicated with the patient and result sheet given to the patient on 01/18/21. ASSESSMENT: Benign, BI-RAD 2 RECOMMENDATION: Return to routine screening mammogram schedule for both breasts.
== END | disposition home or self-care (01) ==
LOC: RADMAMWWP 15:01
PROVIDERS: ATTEND Obstetrics & Gynecology
DX: R92.2 Inconclusive mammogram (principal); Z78.0 Asymptomatic menopausal state; Z80.3 Family history of malignant neoplasm of breast
CPT/HCPCS: 77066

== ENCOUNTER → 2021-09-27 | Outpatient (CLI) | payer BC ==
[2021-09-27 10:29] LABS: Basophils # (A) 0.05 X 10*3/uL (0.00-0.10); Basophils % (A) 0.7 %; Eosinophils # (A) 0.18 X 10*3/uL (0.04-0.35); Eosinophils % (A) 2.6 %; HCT 41.7 % (37.2-46.3); HGB 12.9 g/dL (12.0-15.0); Immature Grans, Automated 0.3 %; Lymphocytes # (A) 1.71 X 10*3/uL (0.90-5.00); Lymphocytes % (A) 24.8 %; MCH 27.3 pg (27.0-32.0); MCHC 30.9 g/dL (32.0-37.0); MCV 88.2 fL (80.0-97.0); Mean Platelet Volume 11.1 fL (9.5-12.2); Monocytes # (A) 0.72 X 10*3/uL (0.20-1.00); Monocytes % (A) 10.4 %; NRBC Per 100 WBC 0 /100 WBCS (0.0-0.0); Neutrophils # (A) 4.22 X 10*3/uL (1.80-7.70); Neutrophils % (A) 61.2 %; Platelet Count 323 X 10*3/uL (140-440); RBC 4.73 X 10*6/uL (4.10-5.20); RDW 12.2 % (11.5-14.5)
[2021-09-27 10:45] LABS: ALT 14 U/L (8-44); AST 13 U/L (13-35); African American GFR (CKD) 90.2 (60.0-200.0); Albumin 4.1 g/dL (3.8-4.9); Albumin/Globulin Ratio 1.34 (1.60-3.17); Alkaline Phosphatase 73 U/L (41-126); BUN/Creat Ratio 13.74 Ratio (12.00-20.00); Blood Urea Nitrogen 11.2 mg/dL (9.0-27.0); Calcium 9.5 mg/dL (8.7-10.3); Carbon Dioxide 26.2 mmol/L (20.0-27.5); Chloride 103 mmol/L (96-109); Chol/HDL Ratio 3.54 Ratio; Globulin 3.1 g/dL (1.6-3.3); Glucose 94 mg/dL (70-110); LDL Cholesterol,Calculated 106.5 mg/dL (0.0-131.0); Non-African American GFR(CKD) 77.8 (60.0-200.0); Potassium 5.1 mmol/L (3.5-5.5); Sodium 141 mmol/L (135-145); Total Protein 7.2 g/dL (6.2-8.2); VLDL Calculation 14.08 mg/dL (5.00-40.00)
== END | disposition home or self-care (01) ==
LOC: LABWHC1 06:56
PROVIDERS: ATTEND Family Medicine
DX: Z00.00 Encounter for general adult medical examination without abnormal findings (principal); Z13.0 Encounter for screening for diseases of the blood and blood-forming organs and certain disorders involving the immune mechanism; Z13.220 Encounter for screening for lipoid disorders
CPT/HCPCS: 36415; 80053; 80061; 85025

== ENCOUNTER → 2022-01-07 | Outpatient (CLI) | payer BC ==
--- NOTE | 2022-01-08 17:57 | MM ---
Reason for Exam: Screening (asymptomatic). Last screening mammogram was performed 11 month(s) ago. Patient History: Menarche at age 11. Patient has no children. Hysterectomy at age 35. Postmenopausal. Other cancer, age 43. Benign Core Biopsy on the right side. 02/08/2001, Benign Excisional Biopsy on the right side. 01/23/1999, Benign Ultrasound-Guided Core Biopsy on the right side. Paternal grandmother had breast cancer, age 60. Risk Values: Mabel 5 year model risk: 2.6%. NCI Lifetime model risk: 11.3%. Prior Study Comparison: 11/21/2019 Bilateral Diagnostic Mammogram, [facility]. 01/04/2021 Bilateral Screening Mammogram, [facility]. 01/18/2021 Bilateral Diagnostic Mammogram, [facility]. Tissue Density: The breast tissue is heterogeneously dense. This may lower the sensitivity of mammography. Findings: Analyzed By CAD. There is no new suspicious group of microcalcifications or new suspicious mass in either breast. Similar appearing left upper quadrant calcifications without significant change. Unchanged right upper quadrant mass and postoperative change at posterior depth. No significant change from prior examinations. Overall Assessment: Benign, BI-RAD 2 Management: Screening Mammogram of both breasts in 1 year. A clinical breast exam by your physician is recommended on an annual basis and results should be correlated with mammographic findings. Electronically signed and approved by: Amilcar Elizalde D.O.
== END | disposition home or self-care (01) ==
LOC: RADMAMWWP 15:44
PROVIDERS: ATTEND Obstetrics & Gynecology
DX: Z12.31 Encounter for screening mammogram for malignant neoplasm of breast (principal); Z80.3 Family history of malignant neoplasm of breast; Z78.0 Asymptomatic menopausal state
CPT/HCPCS: 77067

== ENCOUNTER → 2022-01-16 | Outpatient (CLI) | payer BC ==
--- NOTE | 2022-01-16 17:36 | US ---
EXAMINATION TYPE: US thyroid st tissue head/neck DATE OF EXAM: 01/16/2022 COMPARISON: 12/14/2019 CLINICAL HISTORY: 61-year-old female E04.2 goiter, E21.0 Primary hyperparathyroidism. Goiter. Hx para thyroid removed 10 years ago. GLAND SIZE: Right Lobe: 5.1 x 1.7 x 1.6 cm Overall Parenchyma: homogenous Left Lobe: 4.2 x 1.3 x 1.0 cm Overall Parenchyma: homogeneous Isthmus Thickness: 0.19 cm NODULES RIGHT: # of nodules measured on right: 1 1. 1.0 X 0.8 x 0.7 cm, mid medial, solid or almost completely solid, hypoechoic TR 4 nodule, which is wider than tall, with smooth margins, without echogenic foci. Prior size: 0.7 x 0.5 x 0.6 cm LEFT: # of nodules measured on left: 1 1. 0.5 X 0.3 x 0.3 cm, mid mid, solid or almost completely solid, hypoechoic TR 4 nodule, which is as wide as it is tall, with smooth margins, with echogenic foci. Prior size: 0.4 x 0.3 x 0.3 cm ISTHMUS: # of nodules measured in the isthmus: 0 Bilateral neck scanned, no evidence of lymphadenopathy. IMPRESSION: A solid TR4 nodule in the right lobe measures 1.0 cm versus 0.7 cm previously. This can continue to b e followed. FNA if it reaches 1.5 cm.
== END | disposition home or self-care (01) ==
LOC: RADUSWWP 14:39
PROVIDERS: ATTEND Internal Medicine Endocrinology, Diabetes & Metabolism
DX: E04.2 Nontoxic multinodular goiter (principal); E21.0 Primary hyperparathyroidism; E55.9 Vitamin D deficiency, unspecified
CPT/HCPCS: 76536

== ENCOUNTER → 2022-10-25 | Outpatient (CLI) | payer BC ==
[2022-10-25 13:40] LABS: ALT 20 U/L (8-44); AST 20 U/L (13-35); African American GFR (CKD) 91.6 (60.0-200.0); Albumin 4.2 g/dL (3.8-4.9); Albumin/Globulin Ratio 1.62 (1.60-3.17); Alkaline Phosphatase 66 U/L (41-126); BUN/Creat Ratio 16.25 Ratio (12.00-20.00); Calcium 9.3 mg/dL (8.7-10.3); Carbon Dioxide 28.6 mmol/L (20.0-27.5); Chloride 104 mmol/L (96-109); Chol/HDL Ratio 3.25 Ratio; Globulin 2.6 g/dL (1.6-3.3); Glucose 90 mg/dL (70-110); Potassium 4.8 mmol/L (3.5-5.5); Sodium 142 mmol/L (135-145); Total Protein 6.8 g/dL (6.2-8.2); VLDL Calculation 17.24 mg/dL (5.00-40.00)
[2022-10-25 13:45] LABS: Basophils # (A) 0.04 X 10*3/uL (0.00-0.10); Basophils % (A) 0.8 %; Eosinophils # (A) 0.16 X 10*3/uL (0.04-0.35); Eosinophils % (A) 3.4 %; HCT 44.8 % (37.2-46.3); HGB 14.4 g/dL (12.0-15.0); Immature Grans, Automated 0.2 %; Lymphocytes % (A) 33.6 %; MCH 28.9 pg (27.0-32.0); MCHC 32.1 g/dL (32.0-37.0); Mean Platelet Volume 11.2 fL (9.5-12.2); Monocytes # (A) 0.38 X 10*3/uL (0.20-1.00); NRBC Per 100 WBC 0 /100 WBCS (0.0-0.0); Neutrophils # (A) 2.57 X 10*3/uL (1.80-7.70); Platelet Count 259 X 10*3/uL (140-440); RBC 4.98 X 10*6/uL (4.10-5.20); RDW 13.1 % (11.5-14.5); WBC 4.76 X 10*3/uL (4.50-10.00)
== END | disposition home or self-care (01) ==
LOC: LABWHC1 08:49
PROVIDERS: ATTEND Family Medicine
DX: Z13.220 Encounter for screening for lipoid disorders (principal); Z13.1 Encounter for screening for diabetes mellitus; Z13.0 Encounter for screening for diseases of the blood and blood-forming organs and certain disorders involving the immune mechanism
CPT/HCPCS: 36415; 80053; 80061; 85025

== ENCOUNTER → 2022-12-01 | Outpatient (CLI) | payer BC ==
--- NOTE | 2022-12-01 10:23 | MM ---
Reason for Exam: Clinical finding. Last screening mammogram was performed 11 month(s) ago. Indicated Problems: Lump or thickening. Patient History: Menarche at age 11. Patient has no children. Hysterectomy at age 35. Postmenopausal. Other cancer, age 43. Benign Core Biopsy on the right side. 02/08/2001, Benign Excisional Biopsy on the right side. 01/23/1999, Benign Ultrasound-Guided Core Biopsy on the right side. Paternal grandmother had breast cancer, age 60. Risk Values: Mabel 5 year model risk: 2.6%. NCI Lifetime model risk: 10.9%. Tissue Density: The breast tissue is heterogeneously dense. This may lower the sensitivity of mammography. Findings: Analyzed By CAD. Stable postoperative distortion left breast. At the site of clinical concern no obvious mass is present however ultrasound is advised. Bilateral stable scattered calcifications are seen. No suspicious clusters identified at this time. Overall Assessment: Incomplete: need additional imaging evaluation, BI-RAD 0 Management: Diagnostic Breast Ultrasound of the left breast. . Results were given to the patient verbally at the time of exam. Patient should continue monthly self-breast exams. A clinical breast exam by your physician is recommended on an annual basis. This exam should not preclude additional follow-up of suspicious palpable abnormalities. Note on Mabel scores and lifetime risk: 1. A Mabel score greater than 3% is considered moderate risk. If this is the case, consider specialist referral to assess eligibility for a risk reducing agent. 2. If overall lifetime risk for the development of breast cancer is 20% or higher, the patient may qualify for future screening with alternating mammogram and breast MRI. Electronically signed and approved by: Braxton Vieira M.D. Radiologis
--- NOTE | 2022-12-01 10:47 | USB ---
Reason for Exam: Clinical finding. Patient History: Menarche at age 11. Patient has no children. Hysterectomy at age 35. Postmenopausal. Other cancer, age 43. Benign Core Biopsy on the right side. 02/08/2001, Benign Excisional Biopsy on the right side. 01/23/1999, Benign Ultrasound-Guided Core Biopsy on the right side. Paternal grandmother had breast cancer, age 60. Risk Values: Mabel 5 year model risk: 2.6%. NCI Lifetime model risk: 10.9%. Technique: Method: Targeted. Prior Study Comparison: 01/04/2021 Bilateral Screening Mammogram, [facility]. 01/18/2021 Bilateral Diagnostic Mammogram, [facility]. 01/07/2022 Bilateral MG screening mammo w CAD, [facility]. Findings: The upper outer quadrant of the left breast, the axilla of the left breast and the retroareolar of the left breast were scanned. Imaged: Ultrasound imaging of: Area of concern, retroareolar region and axilla. No abnormality visualized in the area of palpable abnormality No evidence for organizing fluid collection or mass. Overall Assessment: Negative, BI-RAD 1 Management: Screening Mammogram of both breasts in 1 year. A clinical breast exam by your physician is recommended on an annual basis and results should be correlated with mammographic findings. This exam should not preclude additional follow-up of suspicious palpable abnormalities. Results were given to the patient verbally at the time of exam. Electronically signed and approved by: Winston Duran DO
== END | disposition home or self-care (01) ==
LOC: RADMAMWWP 09:21
PROVIDERS: ATTEND Obstetrics & Gynecology
DX: N60.02 Solitary cyst of left breast (principal); Z78.0 Asymptomatic menopausal state; Z80.3 Family history of malignant neoplasm of breast
CPT/HCPCS: 77062; 77066

== ENCOUNTER → 2023-02-03 | Outpatient (CLI) | payer BC ==
--- NOTE | 2023-02-03 17:30 | US ---
EXAMINATION TYPE: US thyroid st tissue head/neck DATE OF EXAM: 02/03/2023 COMPARISON: 01/16/22 CLINICAL INDICATION: Female, 62 years old with history of E04.2 NONTOXIC MULTINODULAR GOITER; F/U nod ule GLAND SIZE: Right Lobe: 5.6x2.0x1.8 cm Overall Parenchyma: homogenous Left Lobe: 4.1x1.3x1.3 cm Overall Parenchyma: homogeneous Isthmus Thickness: 0.3 cm NODULES RIGHT: # of nodules measured on right: 1 1. 1.0 X 0.6 x 0.8 cm, mid mid, mixed cystic and solid, hypoechoic nodule, which is wider than tall , with smooth margins, without echogenic foci. Prior size: 1.0 x 0.8 x 0.7 cm LEFT: # of nodules measured on left: 1 1. 0.4 X 0.3 x 0.3 cm, lower lateral, cystic or almost completely cystic, anechoic nodule, which is wider than tall, with smooth margins, with echogenic foci. Prior size: 0.4 x 0.3 x 0.3 cm ISTHMUS: # of nodules measured in the isthmus: 0 Bilateral neck scanned, no evidence of lymphadenopathy. IMPRESSION: Stable TR 4 nodule right lobe. Continued follow-up. Fine-needle biopsy if greater than 1.5 cm.
== END | disposition home or self-care (01) ==
LOC: RADUSWWP 15:15
PROVIDERS: ATTEND Internal Medicine Endocrinology, Diabetes & Metabolism
DX: E04.2 Nontoxic multinodular goiter (principal)
CPT/HCPCS: 76536

== ENCOUNTER → 2023-09-11 | Outpatient (CLI) | payer BC ==
[2023-09-12 14:32] LABS: HLA B27 NEGATIVE
== END | disposition home or self-care (01) ==
LOC: LABWHC1 08:30
PROVIDERS: ATTEND Psychiatry & Neurology Neurology
DX: G62.9 Polyneuropathy, unspecified (principal)
CPT/HCPCS: 36415; 82607; 82947; 83036; 85652; 86038; 86334; 86812

== ENCOUNTER → 2023-11-06 | Outpatient (CLI) | payer BC ==
[2023-11-06 10:33] LABS: Basophils # (A) 0.03 X 10*3/uL (0.00-0.10); Basophils % (A) 0.7 %; Eosinophils % (A) 4.8 %; HCT 45.5 % (37.2-46.3); HGB 14.7 g/dL (12.0-15.0); Lymphocytes # (A) 1.57 X 10*3/uL (0.90-5.00); Lymphocytes % (A) 37.8 %; MCH 28.4 pg (27.0-32.0); MCHC 32.3 g/dL (32.0-37.0); Mean Platelet Volume 11.5 FL (9.5-12.2); Monocytes # (A) 0.39 X 10*3/uL (0.20-1.00); Monocytes % (A) 9.4 %; NRBC Per 100 WBC 0 X 10*3/uL (0.00-0.01); Neutrophils # (A) 1.95 X 10*3/uL (1.80-7.70); Neutrophils % (A) 47.1 %; Platelet Count 272 X 10*3/uL (140-440); RBC 5.17 X 10*6/uL (4.10-5.20); RDW 13.2 % (11.5-14.5); WBC 4.15 X 10*3/uL (4.50-10.00)
[2023-11-06 10:44] LABS: ALT 31 U/L (8-44); AST 24 U/L (13-35); Albumin 4.4 g/dL (3.8-4.9); Albumin/Globulin Ratio 1.63 Ratio (1.60-3.17); Alkaline Phosphatase 72 U/L (41-126); BUN/Creat Ratio 18.25 Ratio (12.00-20.00); Blood Urea Nitrogen 14.6 mg/dL (9.0-27.0); Calcium 9.5 mg/dL (8.7-10.3); Carbon Dioxide 28.6 mmol/L (21.6-31.8); Chloride 105 mmol/L (96-109); Chol/HDL Ratio 4.27 Ratio; Globulin 2.7 g/dL (1.6-3.3); Glucose 93 mg/dL (70-110); LDL Cholesterol,Calculated 158.8 mg/dL (0.0-131.0); Potassium 4.5 mmol/L (3.5-5.5); Sodium 143 mmol/L (135-145); Total Bilirubin 0.5 mg/dL (0.3-1.2); Total Protein 7.1 g/dL (6.2-8.2)
== END | disposition home or self-care (01) ==
LOC: LABWHC1 07:04
PROVIDERS: ATTEND Family Medicine
DX: Z00.00 Encounter for general adult medical examination without abnormal findings (principal); Z13.220 Encounter for screening for lipoid disorders; Z79.899 Other long term (current) drug therapy
CPT/HCPCS: 36415; 80053; 80061; 85025

== ENCOUNTER → 2023-12-14 | Outpatient (CLI) | payer BC ==
--- NOTE | 2023-12-15 09:21 | MM ---
Reason for Exam: Screening (asymptomatic). Last mammogram was performed 1 year(s) and 1 month(s) ago. Patient History: Menarche at age 11. Patient has no children. Hysterectomy at age 35. Postmenopausal. Other cancer, age 43. Benign Core Biopsy on the right side. 02/08/2001, Benign Excisional Biopsy on the right side. 01/23/1999, Benign Ultrasound-Guided Core Biopsy on the right side. Paternal grandmother had breast cancer, age 60. Risk Values: Mabel 5 year model risk: 2.7%. NCI Lifetime model risk: 10.6%. Prior Study Comparison: 01/18/2021 Bilateral Diagnostic Mammogram, [facility]. 01/07/2022 Bilateral MG screening mammo w CAD, [facility]. 12/01/2022 Bilateral MG 3D diag mammo w/cad [facility], [facility]. Tissue Density: The breasts are heterogeneously dense, which may obscure small masses. Findings: Analyzed By CAD. Chronic nodularity on the right. Unchanged regional punctate and round calcifications on the left. Asymmetric density central left CC view at middle depth appears more defined and incompletely disperses on 3-D images. This may represent superimposition shadow but further evaluation is recommended. Overall Assessment: Incomplete: need additional imaging evaluation, BI-RAD 0 Management: Special View Mammogram of the left breast. to include spot 3-D CC, 3-D CC rolled, and 3-D lateral views. [facility] will attempt to contact patient to return for supplemental views and ultrasound if indicated. Electronically signed and approved by: Jae Martines M.D. Radiologist
== END | disposition home or self-care (01) ==
LOC: RADMAMWWP 16:16
PROVIDERS: ATTEND Obstetrics & Gynecology
DX: Z12.31 Encounter for screening mammogram for malignant neoplasm of breast (principal); Z78.0 Asymptomatic menopausal state; Z80.3 Family history of malignant neoplasm of breast
CPT/HCPCS: 77063; 77067

== ENCOUNTER → 2023-12-16 | Outpatient (CLI) | payer BC ==
--- NOTE | 2023-12-16 07:41 | MM ---
Reason for Exam: Additional evaluation requested from abnormal screening. Last screening mammogram was performed less than 1 month ago. Patient History: Menarche at age 11. Patient has no children. Hysterectomy at age 35. Postmenopausal. Other cancer, age 43. Benign Core Biopsy on the right side. 02/08/2001, Benign Excisional Biopsy on the right side. 01/23/1999, Benign Ultrasound-Guided Core Biopsy on the right side. Paternal grandmother had breast cancer, age 60. Risk Values: Mabel 5 year model risk: 2.7%. NCI Lifetime model risk: 10.6%. Prior Study Comparison: 01/07/2022 Bilateral MG screening mammo w CAD, [facility]. 12/01/2022 Bilateral MG 3D diag mammo w/cad [facility], [facility]. 12/14/2023 Bilateral MG 3D screening mammo w/cad, [facility]. Tissue Density: Left: The breasts are heterogeneously dense, which may obscure small masses. Findings: Analyzed By CAD. Central asymmetric density on the CC view middle depth becomes less pronounced on the spot 3-D CC view and is not clearly seen on the 3D cc rolled view. No correlate on the mediolateral view. Findings suggest superposition shadow. Given the appearance on screening exam, precautionary six-month follow-up recommended. Overall Assessment: Probably benign, BI-RAD 3 Management: Diagnostic Mammogram of the left breast in 6 months. . Results were given to the patient verbally at the time of exam. Patient should continue monthly self-breast exams. A clinical breast exam by your physician is recommended on an annual basis. This exam should not preclude additional follow-up of suspicious palpable abnormalities. Note on Mabel scores and lifetime risk: 1. A Mabel score greater than 3% is considered moderate risk. If this is the case, consider specialist referral to assess eligibility for a risk reducing agent. 2. If overall lifetime risk for the development of breast cancer is 20% or higher, the patient may qualify for future screening with alternating mammogram and breast MRI. Electronically signed and approved by: Jae Martines M.D. Radiologist
== END | disposition home or self-care (01) ==
LOC: RADMAMWWP 07:20
PROVIDERS: ATTEND Obstetrics & Gynecology
DX: R92.8 Other abnormal and inconclusive findings on diagnostic imaging of breast (principal); R92.332 Mammographic heterogeneous density, left breast; Z78.0 Asymptomatic menopausal state; Z80.3 Family history of malignant neoplasm of breast
CPT/HCPCS: 77061; 77065

== ENCOUNTER → 2024-01-04 | Outpatient (CLI) | payer BC ==
[2024-01-05 02:36] LABS: Albumin 4.6 g/dL (3.8-4.9); Calcium 9.3 mg/dL (8.7-10.3); T4, Free (Free Thyroxine) 1.2 ng/dL (0.80-1.80)
== END | disposition home or self-care (01) ==
LOC: LABWHC1 15:34
PROVIDERS: ATTEND Internal Medicine Endocrinology, Diabetes & Metabolism
DX: E55.9 Vitamin D deficiency, unspecified (principal); E04.2 Nontoxic multinodular goiter
CPT/HCPCS: 36415; 82040; 82306; 82310; 84439; 84443

== ENCOUNTER → 2024-02-29 | Outpatient (CLI) | payer BC ==
--- NOTE | 2024-02-29 11:54 | US ---
EXAMINATION TYPE: US thyroid st tissue head/neck DATE OF EXAM: 02/29/2024 COMPARISON: 02/03/23 CLINICAL INDICATION: Female, 63 years old with history of E04.2 NONTOXIC MULTINODULAR GOITER; follow up on nodules GLAND SIZE: Right Lobe: 5.2 x 1.4 x 1.6 cm Overall Parenchyma: homogeneous Left Lobe: 4.4 x 1.3 x 1.4 cm Overall Parenchyma: homogeneous Isthmus Thickness: 0.25 cm NODULES RIGHT: # of nodules measured on right: 1 1. 0.9 X 0.8 x 0.7 cm, mid medial, solid or almost completely solid, hypoechoic nodule, which is wi neeta than tall, with lobulated or irregular margins, without echogenic foci. TR 4 Prior size: 1.0 x 0.8 x 0.6 cm LEFT: # of nodules measured on left: 1 1. 0.4 X 0.4 x 0.3 cm, mid mid, cystic or almost completely cystic, anechoic nodule, which is wider than tall, with smooth margins, with echogenic foci. Prior size: 0.4 x 0.4 x 0.3 cm ISTHMUS: # of nodules measured in the isthmus: 0 Bilateral neck scanned, no evidence of lymphadenopathy. IMPRESSION: 1. Moderately suspicious nodule right lobe thyroid. Consider follow-up in one year. 2017 ACR TI-RADS LEVEL: TR-RADS 4 - Moderately Suspicious: Follow if > 1 cm, FNA if > 1.5 cm *Highest TI-RADS level nodule reported [facility], , 02/29/2024 11:52 AM
== END | disposition home or self-care (01) ==
LOC: RADUSWWP 06:57
PROVIDERS: ATTEND Internal Medicine Endocrinology, Diabetes & Metabolism
DX: E04.2 Nontoxic multinodular goiter (principal)
CPT/HCPCS: 76536

== ENCOUNTER → 2024-02-29 | Outpatient (CLI) | payer BC ==
[2024-02-29 10:36] LABS: ALT 23 U/L (8-44); AST 19 U/L (13-35); Albumin 4.2 g/dL (3.8-4.9); Albumin/Globulin Ratio 1.62 Ratio (1.60-3.17); Alkaline Phosphatase 68 U/L (41-126); BUN/Creat Ratio 20.38 Ratio (12.00-20.00); Blood Urea Nitrogen 16.3 mg/dL (9.0-27.0); Calcium 8.9 mg/dL (8.7-10.3); Chloride 104 mmol/L (96-109); Chol/HDL Ratio 4.15 Ratio; Globulin 2.6 g/dL (1.6-3.3); Glucose 99 mg/dL (70-110); Potassium 4.6 mmol/L (3.5-5.5); Sodium 141 mmol/L (135-145); Total Bilirubin 0.4 mg/dL (0.3-1.2); Total Protein 6.8 g/dL (6.2-8.2)
== END | disposition home or self-care (01) ==
LOC: LABWHC1 07:18
PROVIDERS: ATTEND Family Medicine
DX: Z00.00 Encounter for general adult medical examination without abnormal findings (principal); E78.2 Mixed hyperlipidemia
CPT/HCPCS: 36415; 80053; 80061

== ENCOUNTER → 2024-06-30 | Outpatient (CLI) | payer BC ==
--- NOTE | 2024-06-30 15:37 | MR ---
EXAMINATION TYPE: MR thoracic spine wo con DATE OF EXAM: 06/30/2024 COMPARISON: NONE HISTORY: Mid back pain TECHNIQUE: Multiplanar, multisequence imaging of thoracic spine is performed without contrast FINDINGS: Spinal cord shows normal course, caliber, and signal as it courses the thoracic spine. [place] tebral body heights and alignment are satisfactory. There is hemangioma noted involving the superior T10 vertebra sagittal image 9 and they smaller hemangioma involving superior T6 vertebra. Mild to mo derate multilevel anterior spurring is seen. There are small posterior disc herniations effacing the anterior thecal sac beginning at T4-T5 level sagittal image 8 extending through T8-T9 level. There is additional larger disc herniation effacing anterior thecal sac at T11-T12 and T12-L1 level on sagitt al image 8. Bone marrow signal intensity is preserved. Review of the axial images confirms multilevel left paracentral disc herniations in the midthoracic s pine effacing the anterolateral thecal sac. There is additional right paracentral disc protrusion mil dly effacing the anterolateral thecal sac at T9-T10 level on axial image 10 series 701. Largest disc herniation confirm the T11-T12 level on axial image 5 measuring 9 mm transversely by 5 mm AP diameter . No suspicious incidental findings in the visualized thorax or upper abdomen. IMPRESSION: As above [facility], , 06/30/2024 3:35 PM
== END | disposition home or self-care (01) ==
LOC: RADMRIMAIN 13:09
PROVIDERS: ATTEND Orthopaedic Surgery
DX: M47.816 Spondylosis without myelopathy or radiculopathy, lumbar region (principal); M47.24 Other spondylosis with radiculopathy, thoracic region
CPT/HCPCS: 72146

== ENCOUNTER → 2024-09-02 | Outpatient (CLI) | payer BC ==
[2024-09-02 17:55] LABS: INR <0.93 sec (0.93-1.11); Prothrombin Time 10.4 sec (9.9-11.9)
== END | disposition home or self-care (01) ==
LOC: LABWHC1 10:22
PROVIDERS: ATTEND Orthopaedic Surgery
DX: Z01.812 Encounter for preprocedural laboratory examination (principal); M48.061 Spinal stenosis, lumbar region without neurogenic claudication; R58 Hemorrhage, not elsewhere classified; Z22.322 Carrier or suspected carrier of Methicillin resistant Staphylococcus aureus
CPT/HCPCS: 36415; 85610; 86850; 86900; 86901; 87070

== ENCOUNTER 2024-09-08 12:30 | Day surgery (SDC) | payer BC ==
[2024-09-06 09:39] VITALS: BMI 28.3
--- NOTE | 2024-09-08 08:52 | P.HPOR ---
History of Present Illness H&P Date: 09/02/24 [facility] PATIENT: SHANDRA LESTER PROVIDER: ULISES Sep 02, 2024 8:00?AM SPINE SURGERY CLINICAL AND RISK REVIEW SHANDRA LESTER is a 63 YO FEMALE presenting for evaluation of LLE PAIN, LOW BACK PAIN . It was my pleasure to have seen and examined SHANDRA LESTER . In our visit today we have had a chance to go over subjective complaints, physical examination findings and treatments including the natural course history without intervention and various interventional options. The patient's imaging demonstrates the following findings: L4-5 LEFT HNP WITH STENOSIS LATERAL RECESS AND FORAMINAL WITH NERVE ROOT DISPLACEMENT L4/5 MODERATE TO SEVERE STENOISIS DUE TO HNP AND LIGAMENTAL HYPERTROPHY NO FRACTURES OR LESIONS On a physical exam,SHANDRA LESTER demonstrates the following findings: +SLR LEFT LLE RADICULOPATHY, WEAKNESS, PARESTHESIAS AND CRAMPING LOW BACK PAIN AND BUTTOCK PAIN LEFT SIDE MOSTLY I have explained to the patient that as their condition progresses it will cause further neurological deficits and eventual paralysis. Based on the patients imaging, physical exam, and the rapid progression and disabling nature of their symptoms, at this time I recommend surgery in the form of a: L4-5 LAMINOFORAMINOTOMY (LEFT) . I discussed the risk and benefits of this procedure at length with SHANDRA LESTER . The patient has agreed to consider pursuing the procedure above mentioned. Prior to surgery, they should follow up with her PCP (Cardio, ID, IM etc) for matt reyes. Questions were invited and answered, and the patient wishes to proceed as outlined below. Currently, I am recommending: L4-5 LAMINOFORAMINOTOMY (LEFT) Obtain appropriate presurgical workup and clearances as discussed with the patient. Review of surgical risks and benefits as well as an educational packet on the proposed surgical procedure. Risks: All surgical procedures come with inherent risks, including those related to positioning, anesthesia, intraoperative findings, and postoperative complications. It is important to understand that surgery does not come with any guarantee of a successful outcome as complications and adverse events are always possible. The patient was given a handout in the office today discussing the surgical procedure and risks associated with the intervention, both of which were discussed with the patient. These risks include but are not limited to the following: Experiencing same, different or even worse symptoms in back, neck, arms, or legs compared to before surgery. Requiring further surgery or other forms of treatment presently or at some time in the future at same or other levels of the intended spine surgery. On an extreme but fortunately relatively rare basis severe complications such as blindness, stroke, heart attack, temporary and/or permanent nerve injury, paralysis, coma, or may occur, sometimes without known explanati on. Surgical complications may include but are not limited to risk of infection, fluid accumulation in the surgical dissection site, including a seroma or hematoma, that requires additional surgery, wound drainage, bleeding, new numbness or weakness, vision changes/loss, spinal fluid leakage, non-healing and/or infected incision, headaches, difficulty or inability to swallow, hoarseness, hemopneumothorax, pneumothorax, impotence, retrograde ejaculation, vaginal dryness; injury to nerves, spinal cord, blood vessels, lymphatics or other vital organs (i.e., bowel injury, injury to the great vessels); heterotopic bone formation; complications related to the hardware such as screws, rods, cages including misplaced hardware, device failure, instrumentation at the wrong spine level, hardware fracture/breakage, or hardware loosening; vertebral failure of the spinal column above or below the newly placed hardware; retained surgical instrumentations or devices and the need for further surgery. Medical risks of the planned spine surgery include but are not limited to generalized Infections to the whole body or local areas outside of the surgical site (sepsis), heart attack, bleeding, anaphylaxis, meningitis, seizure, epilepsy, hearing loss, burn farooq, laceration of the head or other areas of the body, bruising, hypersensitivity of the skin, bladder over distension; allergic reaction; shoulder injury related to positioning; fat, blood and air clots to other areas of the body like heart, lungs, brain; failure of internal organs such as lungs, kidneys, liver and excessive bleeding. If blood transfusions are necessary, note that transfusions may cause intolerance reactions such as anaphylaxis or other complex reactions. Despite best efforts, the results of spine surgery might not heal in terms of bone, soft tissues such as skin, fascia, ligaments, and joints. Additionally, in order to achieve best possible results, spine surgery may be carried out beyond the initially planned levels and involve decompression, fusion including insertion of hardware at levels other than the original intended area of surgical interest change some portions of the procedure in order to ensure the best possible outcomes. With spine surgery and spinal fusion, there are different off label uses of instrumentation (devices, implants and hardware) as well as biological substances (bone morphogenic proteins, demineralized bone matrix) as well as using extra bone from allograft sources (i.e. cadaver bone) or autograft (iliac crest bone, ribs, or the spine itself). The patient has been given information about these practices and their inherent risks and benefits. The patient has had a chance to review all the listed information, has been given print outs detailing this information, and has had all his/her questions answered to their satisfaction. It was my pleasure to have seen and examined SHANDRA LESTER . In our visit today we have had a chance to go over my understanding of our patient's current condition, the natural course history without intervention and various interventional options. Questions were invited and answered, and the patient wishes to proceed as outlined above. I have seen and examined the patient for 25 minutes and we have spent more than 50% of the time in repeat and detailed counseling about the patient's condition, its natural course history without and as much as can be predicted with surgery and re-review of various surgical treatment options. In conclusion, SHANDRA LESTER and their family requested we proceed with the above suggested surgery and are willing to accept risks and limitations of the suggested surgery as the nature of the disease process and our best attempts at treatment for the condition. In our visit today the patient and I have had a chance to go over my understanding of their current condition, the natural course history without intervention and various interventional options. Questions were invited and answered, and the patient wishes to proceed as outlined above. I will be sure to keep you updated after the patient returns here for further follow-up. Thank you again for your referral. Please do not hesitate to contact me if you have any further questions. Signed and authenticated by: Sep 08, 2024 7:00?AM DO Adam Rooney [facility] [id number] [id number] This document is confidential, intended only for the named recipient(s) and may contain information that is privileged or exempt from disclosure under applicable law. If you are not the intended recipient(s), you are notified that the dissemination, distribution or copying of this information is strictly prohibited. If you received this message in error, please notify the sender then delete this message. Past Medical History Past Medical History: Atrial Fibrillation, Osteoarthritis (OA) Additional Past Medical History / Comment(s): Spinal stenosis, bulging discs and arthritis in lower back. Skull fracture @ 7 years old. Afib- resolved after ablation. 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 History of Any Multi-Drug Resistant Organisms: None Reported Past Surgical History: Appendectomy, Heart Catheterization, Hysterectomy Additional Past Surgical History / Comment(s): skull fracture-small peice of skull removed to relieve pressure, cardiac ablation Past Anesthesia/Blood Transfusion Reactions: No Reported Reaction Smoking Status: Never smoker - Past Family History Father Additional Family Medical History / Comment(s): Father w/ hx of blood clots. Medications and Allergies Home Medications Medication Instructions Recorded Confirmed Type Acetaminophen Tab [Tylenol Tab] 500 mg PO Q6H PRN 09/06/24 09/06/24 History Ascorbic Acid [Vitamin C] 500 mg PO DAILY 09/06/24 09/06/24 History Calcium Carbonate [Calcium] 600 mg PO DAILY 09/06/24 09/06/24 History Cholecalciferol (Vitamin D3) 100 mcg PO DAILY 09/06/24 09/06/24 History [Vitamin D3 (50 Mcg = 2000 Iu)] Multivitamins, Thera [Multivitamin 1 tab PO DAILY 09/06/24 09/06/24 History (formulary)] [place]-3/Dha/Epa/Fish Oil [Fish Oil 1 each PO DAILY 09/06/24 09/06/24 History 1,000 mg Softgel] Zinc Gluconate [Zinc] 1 dose PO DAILY 09/06/24 09/06/24 History valACYclovir HCL [Valtrex] 500 mg PO BID PRN 09/06/24 09/06/24 History Allergies Allergy/AdvReac Type Severity Reaction Status Date / Time methotrexate Allergy Full body Verified 09/07/24 10:34 tingling-head to toe sulfamethoxazole Allergy Unknown Verified 09/06/24 09:16 [From ] Childhood trimethoprim [From ] Allergy Unknown Verified 09/06/24 09:16 Childhood medical tape AdvReac pimply rash Uncoded 09/06/24 09:57 Physical Examination Osteopathic Statement: *. No significant issues noted on an osteopathic structural exam other than those noted in the History and Physical/Consult.
[~2024-09-08 12:30] MED LIST changes: -ALBUTEROL NEB (CONC) 2.5 MG/0.5 ML INHALATION ONE; -ATROPINE SULFATE 0.4 MG/ML 1 ML VIAL IM ONE; +HYDROmorphone 0.5 MG/0.5 ML SYRINGE IVP PRN; +LIDOCAINE 1% (10MG/ML) FOR IV START INTRADERMA PRN; -LIDOCAINE 2% (PF) 20 MG/ML 5 ML VIAL INHALATION ONE; +TRANEXAMIC 1,000 MG/100ML-NACL 1,000 MG in SALINE 1 100ML.BAG IVPB PRN; +fentaNYL (PF) 50 MCG/ML 2 ML AMP IV PRN
[2024-09-08] MEDS: LACTATED RINGERS 1,000 ML IV SCH (14:09)
[2024-09-08] MEDS: IV FLUID CONTINUATION 1,000 ML IV ONE ×2 (14:09→14:29)
[2024-09-08] MEDS: ONDANSETRON 4 MG/2 ML VIAL IVP PRN (14:14)
[2024-09-08] MEDS: DEXAMETHASONE SOD PHOSPHATE 4 MG/ML 1 ML VIAL IV ONE (14:14)
[2024-09-08] MEDS: ACETAMINOPHEN TAB 500 MG TAB PO PRN (14:15)
[2024-09-08] MEDS: GABAPENTIN 300 MG CAP PO PRN (14:15)
[2024-09-08] MEDS ORDERED: NEOSTIGMINE 1 MG/ML 10 ML VIAL ONE (14:35)
[2024-09-08] MEDS ORDERED: TRANEXAMIC 1,000 MG/100ML-NACL PREMIX BAG ONE (14:35)
[2024-09-08] MEDS ORDERED: GLYCOPYRROLATE 0.2 MG/ML 2 ML VIAL ONE (14:35)
[2024-09-08] MEDS ORDERED: PROPOFOL 10 MG/ML 20 ML VIAL IV ONE (14:35)
[2024-09-08] MEDS ORDERED: MIDAZOLAM 2 MG/2 ML VIAL ONE (14:35)
[2024-09-08] MEDS ORDERED: LIDOCAINE 1% INJ 10MG/ML (20 ML MDV) ONE (14:35)
[2024-09-08] MEDS ORDERED: fentaNYL (PF) 50 MCG/ML 2 ML AMP ONE (14:35)
[2024-09-08] MEDS ORDERED: ROCURONIUM 10 MG/ML (5 ML VIAL) IV ONE (14:35)
[2024-09-08] MEDS ORDERED: SUCCINYLCHOLINE CHLORIDE 200 MG/10 ML VIAL IV ONE (14:35)
[2024-09-08] MEDS ORDERED: KETAMINE HCL IN 0.9 % NACL 50 MG/5 ML SYRINGE ONE (14:35)
[2024-09-08] MEDS: THROMBIN (BOVINE) 5,000 UNIT VIAL TOPICAL ONE (15:13)
[2024-09-08] MEDS: BUPIVACAINE (PF) 0.5% 30 ML VIAL SQ ONE (15:14)
[2024-09-08] MEDS: LIDOCAINE 2%-EPI 1:100,000 20 ML VIAL SQ ONE (15:14)
[2024-09-08] MEDS: LACTATED RINGERS 1,000 ML IV ONE (16:05)
--- NOTE | 2024-09-08 16:20 | P.OP ---
Date of Procedure: 09/08/24 Preoperative Diagnosis: 1. L4-5 HNP WITH STENOSIS 2. LUMBAR RADICULOPATHY 3. FACET CYST LEFT L4-5 4 LOW BACK PAIN Postoperative Diagnosis: 1. L4-5 HNP WITH STENOSIS 2. LUMBAR RADICULOPATHY 3. FACET CYST LEFT L4-5 4 LOW BACK PAIN Procedure(s) Performed: 1. L4-5 LAMINOFORAMINOTOMY WITH MICRODISCECOMTY NOTES: LEFT MIS Implants: NONE Anesthesia: GETA Surgeon: Samuel Ayala Roller Shop Supervisor #1: Aubrey Hoff (WAS PRESENT AND ASSISTED WITH ALL ASPECTS OF THE CASE FROM POSITION TO DRESSING PLACEMENT) Estimated Blood Loss (ml): 25 IV fluids (ml): 1,000 Urine output (ml): 0 Pathology: none sent Condition: stable Disposition: PACU Indications for Procedure: SHANDRA LESTER is a 63 YO FEMALE presenting for evaluation of LLE PAIN, LOW BACK PAIN . It was my pleasure to have seen and examined SHANDRA LESTER . In our visit today we have had a chance to go over subjective complaints, physical examination findings and treatments including the natural course history without intervention and various interventional options. The patient's imaging demonstrates the following findings: L4-5 LEFT HNP WITH STENOSIS LATERAL RECESS AND FORAMINAL WITH NERVE ROOT DISPLACEMENT L4/5 MODERATE TO SEVERE STENOISIS DUE TO HNP AND LIGAMENTAL HYPERTROPHY NO FRACTURES OR LESIONS On a physical exam,SHANDRA LESTER demonstrates the following findings: +SLR LEFT LLE RADICULOPATHY, WEAKNESS, PARESTHESIAS AND CRAMPING LOW BACK PAIN AND BUTTOCK PAIN LEFT SIDE MOSTLY I have explained to the patient that as their condition progresses it will cause further neurological deficits and eventual paralysis. Based on the patients imaging, physical exam, and the rapid progression and disabling nature of their symptoms, at this time I recommend surgery in the form of a: L4-5 LAMINOFORAMINOTOMY (LEFT) . I discussed the risk and benefits of this procedure at length with SHANDRA LESTER . The patient has agreed to consider pursuing the procedure above mentioned. Prior to surgery, they should follow up with her PCP (Cardio, ID, IM etc) for clearance. Questions were invited and answered, and the patient wishes to proceed as outlined below. Currently, I am recommending: L4-5 LAMINOFORAMINOTOMY (LEFT) Description of Procedure: L4-5 LEFT LAMINOFORAMINOTOMY The patient was seen and examined in the preoperative area. All preoperative protocols were followed. Informed consent was obtained, risks and benefits of the procedure were discussed at length. Risks including bleeding infection damage to the surrounding tissue and risk of reoperation were discussed with the patient. Risk of anesthesia up to and including was discussed with the patient. These are outlined in the risk review. They were willing to accept these risks and all the risks of surgery. The patient was given a weight-based dose of antibiotics in the form of 2 g Ancef. The patient was seen and evaluated by the anesthesia team who deemed them fit for surgery. The site was marked, the patient was willing to proceed with the procedure. The patient was transferred to the operative suite by the Department of anesthesia. They were then drifted off to sleep by the department anesthesia an d GETA was performed. The patient tolerated this well. Once confirmation of lines and ventilation the patient was transferred to a prone Latrell table very carefully. All bony prominences including wrists, elbows, axilla, chest, hips, and thighs, and feet were padded very well. Special attention was paid to the genitalia, and these were padded accordingly. SCDs were placed on bilateral lower extremities and were connected. Arms were well padded and placed on arm boards up and out in the 90/90 position. Once in position, again we confirmed good ventilation capabilities and that lines were running appropriately. The patients Lumbar spine was then exposed. 1010s were placed outlining the incision site. Standard alcohol was used to clean the incision site and allowed to dry. C-arm was used to needle localize the pedicles at L4-5 and bio-fabi the patient and confirm level for incision which was marked with a skin marker. Operative briefing was performed with all teams and everyone in agreement to proceed. The patient was then prepped and draped in a normal sterile fashion. Timeout was then performed, and all parties agreed with the procedure to be performed. Skin incision was made over the previously marked area. Fluoroscopy was then used to target the lamina and facet joints on the LEFT hand side of L4-5 and initial dilator for tubular retractor system was used to identify this area. Once in a good position, sequential dilation was taken up to 26 mm and tube selected. A70 mm tube was then placed and secured to the table. This was confirmed to be in good position on AP and Lateral imaging. Limited myomectomy was then done to identify the lamina, interlaminar space, and facet joints. Mo-laminotomy, partial medial facetectomy and foraminotomy were performed at L4-5 using high speed ravin and Kerrison rongeur. The ligamentum flavum was removed with Kerrison and curette. Dura and roots protected. The disc space was identified along with the herniation. 11 blade was used to make small annulotomy and micro-pituitary used to remove loose disc fragments. Once fragments were removed, down biting curette was used to push any medial fragments down and towards the annulotomy and decompress centrally. The disc space was irrigated, and any loose fragments removed again. Bipolar was used for hemostasis and scarring of the annulotomy. The area was irrigated, and meticulous hemostasis performed. The bed was inspected, and all roots have ample room and are decompressed along with the dura. There were no injuries. Retractors were then removed. The wound was copiously irrigated with NSS. The deep fascia was closed with 0 PDS. Deep sub-q with 0 Vicryl and superficial with 2-0 Vicryl. Subcuticular was closed with 3-0 stratafix. The wound edges approximated well. The wound was then cleaned, and glue tape placed on the skin and allowed to dry. It was then Covered with an Opifoam dressing. The bed was inspected, and all roots have ample room and are decompressed along with the dura. There were no injuries. Retractors were then removed. The wound was copiously irrigated with NSS. The deep fascia was closed with 0 PDS. Deep sub-q with 0 Vicryl and superficial with 2-0 Vicryl. Skin was closed with skin ray. The wound edges approximated well. The wound was then cleaned, and glue tape placed on the skin and allowed to dry. It was then Covered with an Opifoam dressing. The patient was then transferred off the table back to their hospital bed a- traumatically. They were extubated by the department of anesthesia. They were then transferred to PACU in stable condition having tolerated the procedure with no complications.
[2024-09-08 16:28] VITALS: TEMP 97.1
--- NOTE | 2024-09-08 16:33 | FL ---
EXAMINATION TYPE: FL guidance operating room, XR lumbar spine 2 or 3V DATE OF EXAM: 09/08/2024 CLINICAL HISTORY: Low back pain. TECHNIQUE: Fluoroscopy. Intraoperative 2 views lumbar spine. COMPARISON: Lumbar spine x-ray June 20, 2024 FINDINGS: Fluoroscopic guidance was provided during left L4-L5 minimally invasive Laminoforaminotomy procedure performed by Dr. Ayala. A total of 20 seconds of fluoroscopic time was utilized duri ng the procedure and 2 spot images was acquired. Total dose area product (DAP) in uGy*m?, mGy*cm? (o r similar: 3.5858. Images acquired show needle localization at L4-L5 level. IMPRESSION: As Above. [facility], , 09/08/2024 4:31 PM
[2024-09-08] MEDS: HYDROcodone/APAP 7.5-325MG 1 EACH TAB PO STA (17:48)
[2024-09-08 18:07] VITALS: BP 139/75; PULSE 91; RESP 16
== END 2024-09-08 18:42 | disposition home or self-care (01) ==
LOC: OR 12:30
PROVIDERS: ATTEND Orthopaedic Surgery
DX: M51.16 Intervertebral disc disorders with radiculopathy, lumbar region (principal); M48.061 Spinal stenosis, lumbar region without neurogenic claudication; I48.91 Unspecified atrial fibrillation; M19.90 Unspecified osteoarthritis, unspecified site; Z88.2 Allergy status to sulfonamides; Z88.1 Allergy status to other antibiotic agents
CPT/HCPCS: 63030; 72100; J1100; J0690; J2405; J0665

== ENCOUNTER → 2024-11-18 | Outpatient (CLI) | payer BC ==
--- NOTE | 2024-11-20 21:32 | BD ---
EXAMINATION TYPE: Axial Bone Density DATE OF EXAM: 11/18/2024 CLINICAL HISTORY: 64 years old Female. ICD-10 CODE: N95.1 MENOPAUSAL AND FEMALE CLIMA , Additional H istory: Height: 64" Weight: 168lbs FRAX RISK QUESTIONS: Alcohol (3 or more units per day): No Family History (Parent hip fracture): No Glucocorticoids (More than 3mos): Previously used steroid eye drops (Ex: prednisone, prednisolone, methylprednisolone, dexamethasone, and hydrocortisone). History of Fracture in Adulthood: No Secondary Osteoporosis: 1. Type 1 Diabetes: No 2. Hyperthyroidism: No (hyper parathyroidism, per patient, had parathyroidectomy 3. Menopause before 45: Yes 4. Malnutrition: No 5. Chronic liver disease: No Rheumatoid Arthritis: No Current Tobacco Use: No RISK FACTORS HISTORY OF: Hip Fracture (Right/Left): No Spine Fracture: No History of Wrist Fracture: No Surgery to Spine/Hip(right/left)/Wrist (right/left): Lumbar laminectomy, 09/08/2024 MEDICATIONS: Thyroid Medications: No Osteoporosis Medications: No EXAM MEASUREMENTS: Bone mineral densitometry was performed using the [employer] System. Bone mineral density as measured about the Lumbar spine is: ----- L1-L4(G/cm2): 1.429 T Score Values are as follows: ----- L1: 0.5 ----- L2: 2.5 ----- L3: 3.1 ----- L4: 1.9 ----- L1-L4: 2.1 Z Score Values are as follows: ----- L1: 1.7 ----- L2: 3.7 ----- L3: 4.3 ----- L4: 3.2 ----- L1-L4: 3.3 Baseline @MPH Bone mineral density about the R hip (g/cm2): 0.953 Bone mineral density about the L hip (g/cm2): 0.987 T Score values are as follows: -----R Neck: -1.2 -----L Neck: -0.6 -----R Total: -0.4 -----L Total: -0.2 Z Score values are as follows: -----R Neck: 0.0 -----L Neck: 0.6 -----R Total: 0.5 -----L Total: 0.8 Baseline @MPH FRAX%s: The graph provided illustrates a 8.1% chance for a major osteoporotic fx and a 0.7% chance fo r the hips probability for fx in 10 years time. IMPRESSION: Osteopenia (T Score between -2.5 and -1) femoral neck level right hip. There is slightly increased risk of fracture and the patient may be considered for treatment. Re-Screen 2-5 years. NOTE: T-SCORE=SD OF THE YOUNG ADULT MEAN. [facility], , 11/20/2024 9:30 PM
--- NOTE | 2024-11-21 06:48 | MM ---
Reason for Exam: Screening (asymptomatic). Last screening mammogram was performed 11 month(s) ago. Patient History: Menarche at age 11. Patient has no children. Hysterectomy at age 35. Postmenopausal. Other cancer, age 43. Benign Core Biopsy on the right side. 02/08/2001, Benign Excisional Biopsy on the right side. 01/23/1999, Benign Ultrasound-Guided Core Biopsy on the right side. Paternal grandmother had breast cancer, age 60. Risk Values: Mabel 5 year model risk: 2.8%. NCI Lifetime model risk: 10.3%. Prior Study Comparison: 12/01/2022 Bilateral MG 3D diag mammo w/cad [facility]. 12/14/2023 Bilateral MG 3D screening mammo w/cad, [facility]. 12/16/2023 Left MG 3D work up w/cad [facility], [facility]. Tissue Density: The breasts are heterogeneously dense, which may obscure small masses. Findings: Analyzed By CAD. Stable 7 mm circumscribed round mass in the right breast anterior to middle depth. Benign-appearing bilateral axillary lymph nodes are redemonstrated. There is no suspicious group of microcalcifications or new suspicious mass in either breast. Overall Assessment: Benign, BI-RAD 2 Management: Screening Mammogram of both breasts in 1 year. . Patient should continue monthly self-breast exams. A clinical breast exam by your physician is recommended on an annual basis. This exam should not preclude additional follow-up of suspicious palpable abnormalities. Note on Mabel scores and lifetime risk: 1. A Mabel score greater than 3% is considered moderate risk. If this is the case, consider specialist referral to assess eligibility for a risk reducing agent. 2. If overall lifetime risk for the development of breast cancer is 20% or higher, the patient may qualify for future screening with alternating mammogram and breast MRI. [facility], , 11/21/2024 6:45 AM. Electronically signed and approved by: Alex Christopher M.D.
== END | disposition home or self-care (01) ==
LOC: RADMAMWWP 16:13
PROVIDERS: ATTEND Obstetrics & Gynecology
DX: Z12.31 Encounter for screening mammogram for malignant neoplasm of breast (principal); M85.89 Other specified disorders of bone density and structure, multiple sites; M85.851 Other specified disorders of bone density and structure, right thigh; R92.333 Mammographic heterogeneous density, bilateral breasts; Z78.0 Asymptomatic menopausal state; Z80.3 Family history of malignant neoplasm of breast
CPT/HCPCS: 77063; 77067; 77080

== ENCOUNTER → 2024-12-23 | Outpatient (CLI) | payer BC ==
[2024-12-23 15:49] LABS: Albumin 4.4 g/dL (3.8-4.9); Calcium 9.2 mg/dL (8.7-10.3); T4, Free (Free Thyroxine) 1.07 ng/dL (0.80-1.80)
== END | disposition home or self-care (01) ==
LOC: LABWHC1 10:40
PROVIDERS: ATTEND Internal Medicine Endocrinology, Diabetes & Metabolism
DX: E55.9 Vitamin D deficiency, unspecified (principal); E04.2 Nontoxic multinodular goiter; E21.0 Primary hyperparathyroidism
CPT/HCPCS: 36415; 82040; 82306; 82310; 83970; 84439; 84443